=== PATIENT | male | born 1955 | race Caucasian/White ===

== ENCOUNTER 2016-08-01 05:10 | Emergency (ER) | payer OTHER ==
[~2016-08-01] VITALS: Ht 177.8 cm; Wt 118.2 kg
[2016-08-01 05:13] VITALS: TEMP 97.6
[2016-08-01 06:02] LABS: PH 5 (5-8); SQUAMOUS EPITHELIAL None Seen /hpf; URINE APPEARANCE Hazy; URINE BACTERIA None Seen /hpf; URINE BILIRUBIN Negative (NEGATIVE); URINE BLOOD 2+ (NEGATIVE); URINE COLOR Yellow; URINE GLUCOSE Negative (NEGATIVE); URINE KETONE Negative (NEGATIVE); URINE UROBILINOGEN Negative (NEGATIVE)
[2016-08-01 06:03] LABS: URINE WBC 0-2 /hpf
[2016-08-01 06:06] LABS: BASO # 0.1 (0.0-0.2); BASO % 0.5 % (0.0-2.0); EOS # 0.1 (0.0-0.7); EOS % 0.6 % (0-4.0); GRAN # 7.1 (1.4-6.5); GRAN % 75.5 % (42.2-75.2); HEMATOCRIT 45.3 % (42.0-52.0); HEMOGLOBIN 15.2 g/dl (13.5-18.0); LYMPH # 1.7 (1.2-3.4); LYMPH % 17.6 % (20.0-51.0); MEAN CELL VOLUME 87 fl (80.0-100.0); MEAN CORPUSCULAR HEMOGLOBIN 29 pg (27.0-31.0); MEAN CORPUSCULAR HGB CONC 34 g/dl (33.0-37.0); MEAN PLATELET VOLUME 10.6 fl (7.4-10.4); MONO # 0.5 (0.1-0.6); MONO % 5.5 % (1.7-9.3); PLATELET COUNT 174 K/mm3 (130-400); RED BLOOD COUNT 5.22 M/mm3 (4.20-5.60); REDCELL DISTRIBUTION WIDTH-CV 14.6 % (11.5-14.5); WHITE BLOOD COUNT 9.4 K/mm3 (4.8-10.8)
[2016-08-01 06:16] LABS: ADJUSTED CALCIUM 8.6 mg/dL (8.4-10.2); ALANINE AMINOTRANSFERASE 32 U/L (21-72); ALBUMIN 4.2 gm/dL (3.5-5.0); ALKALINE PHOSPHATASE 98 U/L (50-136); ANION GAP 13 mmol/L (7-16); BILIRUBIN,TOTAL 0.9 mg/dL (0.0-1.0); BLOOD UREA NITROGEN 20 mg/dL (9-20); CALCIUM 8.8 mg/dL (8.4-10.2); CARBON DIOXIDE 26 mmol/L (22-30); CHLORIDE 102 mmol/L (98-107); CREATININE, serum 1.39 mg/dL (0.66-1.25); GLUCOSE 137 mg/dL (74-106); SODIUM 141 mmol/L (137-145); TOTAL PROTEIN 7.4 gm/dL (6.4-8.2)
[2016-08-01 06:22] LABS: C-REACTIVE PROTEIN < 0.5 mg/dL (0.0-0.9)
[2016-08-01] MEDS ORDERED: ZOFRAN 4MG T4 MG/TAB PO (06:44)
[2016-08-01] MEDS ORDERED: NORVASC 5MG5 MG/TAB PO (06:44)
[2016-08-01] MEDS ORDERED: FLOMAX 0.40.4 MG/CAP PO (06:44)
[2016-08-01] MEDS ORDERED: NORCO 325 MG-51 TAB PO (06:44)
[2016-08-01 08:38] VITALS: BP 168/105; PULSE 71
== END 2016-08-01 08:48 | disposition home or self-care (01) ==
LOC: COL.ER 05:10
PROVIDERS: Emergency Medicine
DX: N13.2 Hydronephrosis with renal and ureteral calculous obstruction (principal); I10 Essential (primary) hypertension; Z87.442 Personal history of urinary calculi
CPT/HCPCS: J1170; J2405; J7030